=== PATIENT | female | born 1975 | race Caucasian/White ===

== ENCOUNTER 2021-09-01 09:02 | Outpatient (CLI) | payer BC, SELFPAY ==
[2021-09-09 18:08] LABS: Dopamine, Pl <30 pg/mL (0-48); Epinephrine, Pl <15 pg/mL (0-62); Norepinephrine, Pl 507 pg/mL (0-874)
[2021-09-09 18:44] LABS: Adrenocorticotropic Hormone 26.2 pg/mL (7.2-63.3); Androstenedione 66 ng/dL (41-262)
== END 2021-09-01 23:59 | disposition home or self-care (01) ==
LOC: BIMLAB 09:02
PROVIDERS: Referring Provider Internal Medicine Endocrinology, Diabetes & Metabolism; Visit Provider Internal Medicine Endocrinology, Diabetes & Metabolism
DX: D35.00 Benign neoplasm of unspecified adrenal gland (principal)
CPT/HCPCS: 36415; 82024; 82157; 82384; 82533; 82627; 82626